=== PATIENT | female | born 1995 | race Caucasian/White ===

== ENCOUNTER 2019-10-19 19:04 | Emergency (ER) | payer MEDICAID ==
[~2019-10-19] VITALS: Ht 165.1 cm; Wt 77.6 kg
[~2019-10-19 19:04] MED LIST: motrin PO
[2019-10-19 19:19] VITALS: BP 103/62
--- NOTE | 2019-10-19 19:33 | NUR ---
PT TAKEN TO BED 6
--- NOTE | 2019-10-19 19:49 | NUR ---
COLLECTED FLU SWAB AND GIVEN TO LAB.
[2019-10-19 19:52] VITALS: BP 103/62
--- NOTE | 2019-10-19 19:53 | NUR ---
PT C/O DIARRHEA(4X), NAUSEA, SHIVERING, BURDEN X 2-3DAYS. ABD IS ROUND, SOFT, ACTIVE BS, NONTENDER. PT SAYS SHE JUST FOUND OUT SHES . VSS. A&O X4. STEADY GAIT. PT STATES THIS IS HER 6TH PREGNACY, HAD 1 MISCARRIAGE, 4 FULL TERM LIVE CRISTOBAL. LUNG SOUNDS CLEAR ALL THROUGHOUT. NKA. PMH: ANEMIA, LOW BP, 1 MISCARRIAGE
[2019-10-19] MEDS ORDERED: PYRIDOXINE 100 MG/ML VIAL IV ONE (20:45)
[2019-10-19] MEDS ORDERED: NACL 0.9% 1,000 ML IV ONE (20:45)
--- NOTE | 2019-10-19 21:05 | NUR ---
PT BECAME AGITATED WHEN ASKED TO STEP OUT AND INTO THE LOBBY WITH HIS CHILDREN FOR SAFETY CONCERNS IN ER. PT BECAME MORE UPSET AND STARTED YELLING AND SAYING PROFANITY. PT REFUSED TO LEAVE THE ROOM. SECURITY WAS CALLED. PT MADE THE PT LEAVE ER. ERMD MADE AWARE.
--- NOTE | 2019-10-19 21:09 | NUR ---
PATIENT ELOPED FROM FACILITY. DISCHARGE INSTRUCTIONS NOT GIVEN TO PATIENT. TEENA BERNTSEIN NOTIFIED.
== END 2019-10-19 21:09 | disposition left against medical advice (07) ==
LOC: MED 19:04
DX: O23.40 Unspecified infection of urinary tract in pregnancy, unspecified trimester (principal); O21.8 Other vomiting complicating pregnancy; O26.891 Other specified pregnancy related conditions, first trimester; R19.7 Diarrhea, unspecified; R51 Headache; J02.9 Acute pharyngitis, unspecified; D64.9 Anemia, unspecified; Z98.890 Other specified postprocedural states; Z79.899 Other long term (current) drug therapy
CPT/HCPCS: 81002; 81025; 87804; 99283; J3415

== ENCOUNTER 2021-02-14 00:04 | Emergency (ER) | payer MEDICAID ==
[~2021-02-14] VITALS: Ht 142.2 cm; Wt 87.5 kg
[2021-02-14 00:13] VITALS: BP 122/79
--- NOTE | 2021-02-14 00:19 | NUR ---
PT AMBULATORY TO BED #10
--- NOTE | 2021-02-14 00:30 | NUR ---
PT BIB SELF FOR C/O 10 HEADACHE WITH N/V X 1 DAY. PT DENIES TAKING ANY MEDICATION FOR PAIN. PT REPORTS NEW DX OF SIEZURES RECENTLY WHILE AT [facility]. PT SPEECH IS CLEAR. A & O X 4. AMBULATORY. PT REPORTS DIFFICULTY BREATHING, O2 SATURATIONS 100% ON ROOM AIR, RESPIRATIONS ARE EVEN AND UNLABORED. VSS. PT FREQUENTLY CLOSING EYES WHILE TALKING, BUT COOPERATIVE AND RESPONSIVE TO QUESTIONS. PT DENIES TAKING MEDICATIONS FOR SEIZURES. 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 MED HX: SIEZURES ALLERGIES: NKA
--- NOTE | 2021-02-14 00:31 | NUR ---
SIEZURE PRECAUTIONS IMPLEMENTED.
[2021-02-14] MEDS ORDERED: NACL 0.9% 1,000 ML IV ONE (00:40)
[2021-02-14] MEDS ORDERED: ONDANSETRON 4 MG/2 ML VIAL IVP ONE (00:40)
[2021-02-14 00:54] LABS: BASOPHILS % (AUTO) 0.3 % (0.0-2.0); EOSINOPHILS % (AUTO) 0.3 % (0.0-4.0); HEMATOCRIT 37.8 % (36-48); HEMOGLOBIN 12.7 g/dL (12.0-16.0); LYMPHOCYTES # (AUTO) 1.3 K/uL (2.5-16.5); LYMPHOCYTES % (AUTO) 16.9 % (20.5-51.1); MEAN CORPUSCULAR HEMOGLOBIN 27 pg (27-31); MEAN CORPUSCULAR HGB CONC 34 g/dL (33-37); MEAN CORPUSCULAR VOLUME 79.1 fL (80-94); MONOCYTES # (AUTO) 0.4 K/uL (0.8-1.0); MONOCYTES % (AUTO) 5.6 % (1.7-9.3); NEUTROPHILS # (AUTO) 6.1 K/uL (1.8-7.7); NEUTROPHILS % (AUTO) 76.9 % (42.2-75.2); PLATELET COUNT (AUTO) 343 K/uL (140-450); RED BLOOD CELL COUNT(AUTO) 4.78 MIL/uL (4.20-5.40); RED CELL DISTRIBUTION WIDTH 13.4 % (11.6-13.7)
--- NOTE | 2021-02-14 00:55 | NUR ---
ERMD AT BEDSIDE.
--- NOTE | 2021-02-14 00:58 | NUR ---
IV EST. TO Ida Valdes
[2021-02-14 01:15] LABS: ANION GAP 11.8 (8-16); CREATININE 0.7 mg/dL (0.6-1.3); POTASSIUM 3.8 mmol/L (3.5-5.1); TOTAL BILIRUBIN 0.6 mg/dL (0.0-1.0)
--- NOTE | 2021-02-14 01:38 | NUR ---
PT AMBULATED TO RESTROOM WITH ARM ASSIST FROM RN. SCHNEIDER BY SIDE.
--- NOTE | 2021-02-14 01:45 | NUR ---
PT AMBULATED BACK TO BED WITHOUT ASSIST. GAIT IS STEADY. PT REPORTS NEW ONSET DIARRHEA AND CONTINUED HEADACHE PAIN. ERMD MADE AWARE. AWAITING NEW ORDERS.
[2021-02-14] MEDS ORDERED: KETOROLAC 15 MG/ML VIAL IVP ONE (02:15)
[2021-02-14 02:25] LABS: APPEARANCE,URINE SL CLOUDY (CLEAR); BILIRUBIN,URINE NEGATIVE (NEGATIVE); BLOOD, URINE 1+ (NEGATIVE); COLOR,URINE YELLOW (YELLOW); LEUKOCYTE ESTERASE ,URINE 1+ (NEGATIVE); NITRITE, URINE NEGATIVE (NEGATIVE); UGLUCOSE NEGATIVE (NEGATIVE)
[2021-02-14 02:36] LABS: BARBITURATE, URINE NEGATIVE ng/ml (NEG <=200); BENZODIAZEPINE, URINE NEGATIVE ng/mL (NEG <=200); CANNABINOID, URINE NEGATIVE ng/mL (NEG <=50); COCAINE, URINE NEGATIVE ng/mL (NEG <=300); OPIATE, URINE NEGATIVE ng/mL (NEG <=2000); PHENCYCLIDINE SCREEN,URINE NEGATIVE ng/mL (NEG <=25)
[2021-02-14 02:44] LABS: RBC,URINE 0-5 /HPF (0-5)
[2021-02-14] MEDS ORDERED: ONDA-24 SL (03:07)
[2021-02-14] MEDS ORDERED: CEPH-588 PO (03:07)
[2021-02-14 03:39] VITALS: BP 129/80
--- NOTE | 2021-02-14 03:39 | NUR ---
Patient discharged with v/s stable. Written and verbal after care instructions given and explained. Patient alert, oriented and verbalized understanding of instructions. Ambulatory with steady gait. All questions addressed prior to discharge. ID band removed. Patient advised to follow up with PMD. Rx of KEFLEX AND ZOFRAN given. Patient educated on indication of medication including possible reaction and side effects. Opportunity to ask questions provided and answered.
== END 2021-02-14 03:39 | disposition home or self-care (01) ==
LOC: MED 00:04
DX: N39.0 Urinary tract infection, site not specified (principal); R11.10 Vomiting, unspecified; R19.7 Diarrhea, unspecified; R51.9 Headache, unspecified; E86.0 Dehydration; Z79.899 Other long term (current) drug therapy
CPT/HCPCS: 36415; 80053; 80305; 81001; 81025; 83690; 85025; 87086; 96361; 96374; 96375; 99285; J1885; J2405; J7030

== ENCOUNTER 2022-03-05 00:02 | Emergency (ER) | payer MEDICAID ==
[~2022-03-05] VITALS: Ht 167.6 cm; Wt 68.0 kg
[~2022-03-05 00:02] MED LIST changes: +CEPH-588 PO; +ONDA-188 SL
--- NOTE | 2022-03-05 00:28 | NUR ---
CALLED TO TRIAGE, NO ANSWER
--- NOTE | 2022-03-05 00:35 | NUR ---
CALLED TO TRIAGE, NO ANSWER
[2022-03-05 00:46] VITALS: BP 104/52
--- NOTE | 2022-03-05 00:51 | NUR ---
TO BED FOLLOWING TRIAGE
--- NOTE | 2022-03-05 01:28 | NUR ---
patient refusing IV. patient would like to have PO medications.
[2022-03-05 01:42] LABS: BASOPHILS # (AUTO) 0.1 K/uL (0.00-0.22); BASOPHILS % (AUTO) 0.8 % (0.0-2.0); EOSINOPHILS # (AUTO) 0.4 K/uL (0-0.4); EOSINOPHILS % (AUTO) 5.4 % (0.0-4.0); HEMATOCRIT 35.7 % (36-48); HEMOGLOBIN 11.8 g/dL (12.0-16.0); LYMPHOCYTES % (AUTO) 42.2 % (20.5-51.1); MEAN CORPUSCULAR HEMOGLOBIN 26 pg (27-31); MEAN CORPUSCULAR HGB CONC 33 g/dL (33-37); MONOCYTES # (AUTO) 0.6 K/uL (0.8-1.0); NEUTROPHILS # (AUTO) 3.1 K/uL (1.8-7.7); NEUTROPHILS % (AUTO) 43.6 % (42.2-75.2); PLATELET COUNT (AUTO) 295 K/uL (140-450); RED BLOOD CELL COUNT(AUTO) 4.52 MIL/uL (4.20-5.40); RED CELL DISTRIBUTION WIDTH 13.6 % (11.6-13.7); WHITE BLOOD COUNT (AUTO) 7.1 K/uL (4.8-10.8)
[2022-03-05] MEDS: NACL 0.9% 1,000 ML IV ONE (01:52)
[2022-03-05] MEDS: ACETAMINOPHEN EXTRA STRENGTH 500 MG TAB PO ONE (01:53)
[2022-03-05] MEDS: ONDANSETRON 4 MG ODT PO ONE (01:54)
[2022-03-05] MEDS: cephALEXin 500 MG CAP PO ONE (01:54)
[2022-03-05 02:02] LABS: ALBUMIN 3.8 g/dL (3.4-5.0); ANION GAP 8.7 (8-16); CARBON DIOXIDE 27.8 mmol/L (21-32); CREATININE 0.7 mg/dL (0.6-1.3); POTASSIUM 3.5 mmol/L (3.5-5.1); TOTAL BILIRUBIN 0.3 mg/dL (0.0-1.0)
--- NOTE | 2022-03-05 02:03 | NUR ---
US AT BEDSIDE
[2022-03-05 02:42] VITALS: BP 104/52
--- NOTE | 2022-03-05 02:42 | NUR ---
Patient discharged. Written and verbal after care instructions given and explained. Patient gave verbal understanding. Patient lef without discharge paperwork. Patient alert, oriented and verbalized understanding of instructions. Ambulatory with steady gait. All questions addressed prior to discharge. ID band removed. Patient advised to follow up with PMD. Rx of keflex given. Patient educated on indication of medication including possible reaction and side effects. Opportunity to ask questions provided and answered.
--- NOTE | 2022-03-05 02:42 | NUR ---
Note diane in EDM - 03/05/22 at 0244 by KRISTA Patient discharged. Written and verbal after care instructions given and explained. Patient alert, oriented and verbalized understanding of instructions. Ambulatory with steady gait. All questions addressed prior to discharge. ID band removed. Patient advised to follow up with PMD. Rx of keflex given. Patient educated on indication of medication including possible reaction and side effects. Opportunity to ask questions provided and answered.
[2022-03-05] MEDS ORDERED: CEPH500T PO (02:43)
== END 2022-03-05 02:42 | disposition home or self-care (01) ==
LOC: MED 00:02
DX: O20.0 Threatened abortion (principal); O23.41 Unspecified infection of urinary tract in pregnancy, first trimester; Z3A.08 8 weeks gestation of pregnancy; Z79.2 Long term (current) use of antibiotics; Z79.899 Other long term (current) drug therapy; Z86.69 Personal history of other diseases of the nervous system and sense organs
CPT/HCPCS: 36415; 76801; 76830; 80053; 81002; 81025; 84702; 85025; 99284; Q0092; Q0162

== ENCOUNTER 2022-03-21 13:10 | Emergency (ER) | payer MEDICAID ==
[~2022-03-21 13:10] MED LIST changes: +CEPH500T PO
--- NOTE | 2022-03-21 13:20 | NUR ---
PT IN LOBBY WITH , PER , PT SHOULD NOT BE IN THE ER BY HERSELF, REFUSING TO HAVE PT ENTER THE ER FOR TRIAGE. PER , IF HE CANNOT COME IN THE ER WITH PATIENT THEN THEY WILL LEAVE
--- NOTE | 2022-03-21 13:32 | NUR ---
PATIENT LEFT WITHOUT BEING SEEN BY DR. CAMARGO. NO FURTHER CARE PROVIDED FOR PATIENT.
== END 2022-03-21 13:32 | disposition left against medical advice (07) ==
LOC: MED 13:10
DX: O20.8 Other hemorrhage in early pregnancy (principal); Z3A.08 8 weeks gestation of pregnancy; Z53.21 Procedure and treatment not carried out due to patient leaving prior to being seen by health care provider